=== PATIENT | female | born 1990 | race Caucasian/White ===

== ENCOUNTER 2018-07-27 17:06 | Emergency (ER) | payer MEDICAID ==
[2018-07-27] MEDS: IBUPROFEN 600 MG TAB PO (18:45)
== END 2018-07-27 20:23 | disposition home or self-care (01) ==
LOC: FTE 17:06
DX: S69.91XA Unspecified injury of right wrist, hand and finger(s), initial encounter (principal); W23.0XXA Caught, crushed, jammed, or pinched between moving objects, initial encounter; Y92.9 Unspecified place or not applicable
CPT/HCPCS: 29130; 73140; 99283-25